=== PATIENT | male | born 1995 | race Caucasian/White ===

== ENCOUNTER → 2017-02-18 | Day surgery (SDC) | payer BC ==
[~2017-02-18] VITALS: Ht 188 cm; Wt 73.2 kg
[~2017-02-18] MED LIST: ACETAMINOPHEN 1000 MG/100 ML VIAL IV ONE; ACETAMINOPHEN/HYDROcodone 325 MG/5 MG TAB PO PRN; AMPICILLIN/SULBAC 3 GM/NS 100 ML IV SCH; BACITRACIN TOP OINT 15 GM TUBE ONE; CHLORHEXIDINE GLUCONATE 2 % 1 PACK (2 CLOTHS) TOPICAL PRN; DEXAMETHASONE SOD PHOS 4 MG/ML VIAL ONE; DO NOT ADM ANY ANTICOAGULANT DRUGS PRN; FAMOTIDINE 20 MG/2 ML VIAL ONE; INSULIN HUMAN REGULAR 1,000 UNITS/10 ML VIAL SQ PRN; LACTATED RINGER'S 1000 ML INJ 1,000 ML IV SCH; LACTATED RINGER'S 1000 ML IV PRN; LIDOCAINE 1%/EPINEPHrine 1:200,000 PF SOLN 30 ML VIAL INFIL ONE; METOPROLOL TARTRATE 25 MG TAB PO PRN; MIDAZOLAM HCL 2 MG/2 ML VIAL ONE; ONDANSETRON HCL 4 MG/2 ML VIAL ONE; OXYMETAZOLINE HCL 0.05% 15 ML NASAL SPRAY NASAL ONE; POVIDONE IODINE 5% (ANTISEPSIS KIT) 4 APPLICATIONS EACH NARE PRN; PROPOFOL 200 MG/20 ML AMP IV ONE; SODIUM CHLORID 0.9% 500 ML IV PRN; SUGAMMADEX SODIUM 200 MG/2 ML VIAL IV PUSH ONE
[2017-02-18 09:45] VITALS: BP 122/64; PULSE 55; RESP 18; TEMP 97.9; O2SAT 100
[2017-02-18 16:20] VITALS: BP 125/67; PULSE 59; RESP 20; TEMP 97.4; O2SAT 100
--- NOTE | 2017-02-21 11:15 | MP ---
cc: CLINTON BETANCOURT MD DATE OF SURGERY: 02/18/[address] Clinton betancourt PREOPERATIVE DIAGNOSIS 1. Nasal airway obstruction. 2. Nasal septal deviation. 3. Hypertrophy of inferior turbinates. POSTOPERATIVE DIAGNOSIS 1. Nasal airway obstruction. 2. Nasal septal deviation. 3. Hypertrophy of inferior turbinates. OPERATION PERFORMED 1. Open repair nasal of septal fracture. 2. Bilateral submucosal resection of inferior turbinates. The patient was taken to OR #2 and placed in the supine position. Following induction of general anesthesia and intubation the nose was packed bilaterally with cotton pledgets saturated in 0.05% oxymetazoline. The nasal septal mucosa and inferior turbinates were injected with a total of 12 mL of 1% Xylocaine with epinephrine 1:100,000. He was then prepped and draped for surgery. The packing was removed and a hemitransfixion incision was made in the right nasal vestibule. Through this incision the mucosa was elevated bilaterally from the quadrangular cartilage as far as the junction of the bony cartilaginous septum. This exposed severe deviation of the quadrangular cartilage toward the right with evidence of old long-healed septal fracture present with numerous lines of angulation due to the fractured segments. A cumulative area of 2 x 2.5 cm of the quadrangular cartilage was removed in a piecemeal fashion using a Avtar elevator and Jay-Bridges forceps. When this was completed, the anterior end of the quadrangular cartilage was completely mobilized and was returned to the midline and then sewn in place to the maxillary crest using a single suture of 4-0 chromic. The bony septum was then dressed. The mucosa was elevated from the bony septum and was removed using Jay-Bridges forceps and Angel septal forceps. The maxillary crest was removed using a 6-mm Peter chisel preserving the anterior nasal spine. The incision was then closed using a running suture of 4-0 chromic and the mucosal layers of septum were approximated to each other with a quilting stitch of 4-0 plain gut. The inferior turbinates were addressed next. These were outfractured and then stab incisions were made along their inferior surfaces. Through these incisions, the submucosal soft tissue was reduced using a curette preserving the conchal bone. The incisions were then cauterized using the suction Bovie at 35 pope and the remnants of the inferior turbinates were then relateralized to the lateral nasal wall. The nose was then packed with Merocel tampons coated in bacitracin ointment and the procedure was terminated. The patient was reversed from anesthesia and taken to Recovery in good condition. There were no complications. Blood loss was 60 mL. MD ELEAZAR Hernandez/BJF /6:57 AM /11:00 AM
== END | disposition home or self-care (01) ==
LOC: HSDC 09:01
PROVIDERS: ATTEND Otolaryngology
DX: J34.2 Deviated nasal septum (principal); J34.3 Hypertrophy of nasal turbinates
CPT/HCPCS: 00160; 21335; 30140; J0131; J0295; J1100; J2250; J2405; J3010; J7120